=== PATIENT | female | born 1965 | race Caucasian/White ===

== ENCOUNTER → 2016-09-20 | Outpatient (REF) | payer OTHER | LOC: M SFHCLERA 17:14 | PROVIDERS: ATTEND Physician Assistant Medical | DX: N30.00 Acute cystitis without hematuria (principal) ==

== ENCOUNTER → 2018-01-15 | Outpatient (CLI) | payer OTHER | LOC: M WHC 13:06 | DX: Z12.31 Encounter for screening mammogram for malignant neoplasm of breast (principal); R10.2 Pelvic and perineal pain ==

== ENCOUNTER → 2018-05-26 | Outpatient (REF) | payer OTHER | LOC: M SFHCLERA 10:07 | PROVIDERS: ATTEND Physician Assistant | DX: J02.9 Acute pharyngitis, unspecified (principal) ==

== ENCOUNTER → 2019-02-13 | Outpatient (CLI) | payer OTHER ==
--- NOTE | 2019-02-13 09:15 | REPMRS ---
Patient History The patient states she had a clinical breast exam in 01/2019. Patient is postmenopausal. No known family history of cancer. Took hormonal contraceptives for 1 year. Taking estrogen for 1 year 5 months. Taking progesterone for 1 year 5 months. Taking unspecified hormones for 1 year 5 months. 3D TOMOSYNTHESIS WAS PERFORMED. The [facility] lifetime risk for breast cancer is 8.4%. Digital Woman Screen Mammo: February 13, 2019 - Exam #: [id number] Bilateral CC and MLO view(s) were taken. Technologist: Mary Fabian, Technologist Prior study comparison: January 15, 2018, bilateral digital woman screen mammo performed at [facility]. September 28, 2015, digital bilateral screening mammo, performed at [facility]. FINDINGS: The breast tissue is heterogeneously dense. This may lower the sensitivity of mammography. There has been no change in the appearance of the mammogram from the prior studies. There is a moderate amount of residual fibroglandular tissue which is fairly symmetric. There is no interval development of dominant mass, areas of architectural distortion, or clustered microcalcification typical of malignancy. Assessment: BI-RADS/ACR category 1 mammogram. Negative Mammogram. Recommendation Routine screening mammogram in 1 year (for women over age 40). This mammogram was interpreted with the aid of an FDA-approved computer-aided dectection system. Electronically Signed By: Hans Irby MD 02/13/19 0915
== END ==
LOC: M WHC 06:29
PROVIDERS: ATTEND Nurse Practitioner Women's Health
DX: Z12.31 Encounter for screening mammogram for malignant neoplasm of breast (principal)

== ENCOUNTER → 2019-04-17 | Outpatient (CLI) | payer OTHER ==
--- NOTE | 2019-04-17 18:15 | REP ---
Two-view chest: 04/17/2019. Indication: Dyspnea. Cough. Comparison: None. Findings: The lungs are clear. There is no pleural effusion or pneumothorax. The cardiomediastinal silhouette is unremarkable. Impression: No acute cardiopulmonary process. Electronically Signed by Julián Sanchez DO 04/17/2019 06:07 P
== END ==
LOC: M LRY 17:40
PROVIDERS: ATTEND Physician Assistant
DX: R05 Cough (principal)

== ENCOUNTER → 2021-03-11 | Outpatient (CLI) | payer OTHER ==
--- NOTE | 2021-03-11 09:38 | REPMRS ---
Patient History The patient states she had a clinical breast exam in February 2021. Patient is postmenopausal. No known family history of cancer. Took hormonal contraceptives for 1 year. Took estrogen for 1 year 5 months. Took progesterone for 1 year 5 months. Took unspecified hormones for 1 year 5 months. Patient states no breast complaints today. Patient has signed MRS History Sheet. Digital Woman Screen Mammo: March 11, 2021 - Exam #: [id number] Bilateral CC and MLO view(s) were taken. Technologist: Sushila Steward, Technologist Prior study comparison: February 13, 2019, bilateral digital woman screen mammo performed at [facility]. January 15, 2018, bilateral digital woman screen mammo performed at [facility]. September 28, 2015, digital bilateral screening mammo, performed at [facility]. FINDINGS: The breast tissue is heterogeneously dense. This may lower the sensitivity of mammography. The Volpara volumetric breast density category is: C. There is a moderate amount of heterogeneously dense fibroglandular tissue which is fairly symmetric. There is no interval development of dominant mass, architectural distortion, or grouped microcalcification typical of malignancy. There has been no change in the appearance of the mammogram from the prior studies. 3-D tomosynthesis shows no additional findings. Assessment: BI-RADS/ACR category 1 mammogram. Negative Mammogram. Recommendation Routine screening mammogram of both breasts in 1 year (for women over age 40). This patient's [facility] Lifetime Breast Cancer RIsk is estimated at 8.0 %. This mammogram was interpreted with the aid of an FDA-approved computer-aided dectection system. Electronically Signed By: Benjamin Desai MD 03/11/21 0937
--- NOTE | 2021-03-11 09:43 | DEXAMM ---
INDICATION: [facility] SCREEN FOR OSTEOPOROSIS. COMPARISON: None. TECHNIQUE: Bone density was measured using dual-energy x-ray absorptionmetry (DEXA). FINDINGS: AP SPINE L1-L4 BMD 1.248 g/cm2 Young Adult T-Score 0.4 Age Matched Z-Score 1.3. LT FEMUR, TOTAL BMD 0.860 g/cm2 Young Adult T-Score -1.2 Age Matched Z-Score -0.5. LT NECK BMD 0.749 g/cm2 Young Adult T-Score -2.1 Age Matched Z-Score -1.0. RT FEMUR, TOTAL BMD 0.828 g/cm2 Young Adult T-Score -1.4 Age Matched Z-Score -0.8. RT NECK BMD 0.767 g/cm2 Young Adult T-Score -2.0 Age Matched Z-Score -0.9. IMPRESSION: There is normal bone density of the spine. There is low bone density of the left hip. There is low bone density of the right hip. FOLLOW-UP: Recommendation for the next bone density exam: 2 years. <Electronically signed by Benjamin Desai > 03/11/21 0974
== END ==
LOC: M WHC 08:38
PROVIDERS: ATTEND Advanced Practice Midwife
DX: Z12.31 Encounter for screening mammogram for malignant neoplasm of breast (principal); Z13.820 Encounter for screening for osteoporosis; Z78.0 Asymptomatic menopausal state; M85.851 Other specified disorders of bone density and structure, right thigh; M85.852 Other specified disorders of bone density and structure, left thigh

== ENCOUNTER 2021-06-03 12:00 | Emergency (ER) | payer OTHER ==
--- NOTE | 2021-06-03 12:42 | REP ---
INDICATION: CHEST PAIN COMPARISON: 04/17/2019 TECHNIQUE: Portable AP view of the chest FINDINGS: The mediastinum and cardiac silhouette are stable and within normal limits for portable technique. A very subtle area of opacity along the periphery of the right lower lung zone should be correlated with auscultation and physical examination. This may represent an early infiltrate. No effusion. No pneumothorax. Musculoskeletal structures are intact. IMPRESSION: Cannot exclude small area of acute infiltrate along the lateral right lower lung zone. <Electronically signed by Beni Austin > 06/03/21 [id number]
[2021-06-03] MEDS ORDERED: ASPI81CH33 PO (12:44)
[2021-06-03] MEDS ORDERED: LISI10TA22 (12:44)
[2021-06-03 12:52] LABS: BASO % 0.2 % (0.0-1.0); HEMATOCRIT 41.1 % (36.0-47.0); HEMOGLOBIN 14.4 g/dl (12.0-15.5); LYMPH # 0.6 10^3/uL (1.5-5.0); MEAN CORPUSCULAR VOLUME 88.4 fl (80.0-96.0); MONO # 0.2 10^3/uL (0.0-0.8); MONO % 5.1 % (2.0-8.0); NEUTROPHILS # 3.9 10^3/uL (1.5-8.5); NEUTROPHILS % 82.3 % (36.0-66.0); PLATELET COUNT, AUTOMATED 166 10^3/uL (150-450); RED BLOOD COUNT 4.65 10^6/uL (4.00-5.40); WHITE BLOOD COUNT 4.7 10^3/uL (4.0-10.0)
[2021-06-03 13:20] LABS: CK-MB VALUE MASS < 1.0 NG/ML (<3.6); CPK CREATINE PHOSPHOKINASE 48 U/L (26-192); MB/CK RELATIVE INDEX 2.08 (< OR =4)
[2021-06-03 13:27] LABS: ALBUMIN 3.6 GM/DL (3.2-5.2); ALT/SGPT 29 U/L (12-78); BILIRUBIN,DIRECT 0.1 MG/DL (0.0-0.2); BILIRUBIN,TOTAL 0.4 MG/DL (0.2-1.0); BLOOD UREA NITROGEN 8 MG/DL (7-18); CALCIUM LEVEL 8.5 MG/DL (8.5-10.1); CARBON DIOXIDE LEVEL 25 MEQ/L (21-32); CHLORIDE LEVEL 102 MEQ/L (98-107); CREATININE FOR GFR 0.74 MG/DL (0.55-1.30); GLOMERULAR FILTRATION RATE > 60.0 (>51); GLUCOSE, FASTING 104 MG/DL (70-100); LIPASE 211 U/L (73-393); NT-PRO BNP 80 PG/ML (<125); POTASSIUM SERUM 3.5 MEQ/L (3.5-5.1); SODIUM LEVEL 137 MEQ/L (136-145); THYROID STIMULATING HORMONE 0.649 uIU/ML (0.358-3.740)
[2021-06-03] MEDS ORDERED: ISOVUE-370 76% 100ML VIAL As Ordered ONE (14:21)
--- NOTE | 2021-06-03 15:36 | REP ---
INDICATION: sob r/o PE COMPARISON: None. TECHNIQUE: Axial contrast enhanced images from the thoracic inlet to the upper abdomen using pulmonary embolus technique with multiplanar re-formations. 75 ml Isovue 370 intravenous contrast material administered without complication. This CT examination was performed using the following dose reduction techniques: Automated exposure control, adjustment of mA and/or kv according to the patient's size, and use of iterative reconstruction technique. FINDINGS: Satisfactory enhancement of the pulmonary vasculature is achieved and no filling defects are identified to suggest pulmonary embolus. Further evaluation of the mediastinum demonstrates normal thoracic aorta, heart and pericardium. Moderate areas of acute airspace disease involving the right lower lobe and lateral right middle lobe. No effusion. No pneumothorax. Left hemithorax is clear. No significant adenopathy. Tracheobronchial tree is patent. Musculoskeletal structures are intact. Limited upper abdomen demonstrates normal bilateral adrenal glands. IMPRESSION: No evidence for pulmonary embolus. Acute right lower lobe and right middle lobe airspace disease. Findings concerning for COVID-19 pulmonary disease and correlation is required. Differential diagnosis would include early multifocal pneumonia. <Electronically signed by Beni Austin > 06/03/21 3039
[2021-06-03 15:41] LABS: CK-MB VALUE MASS < 1.0 NG/ML (<3.6); CPK CREATINE PHOSPHOKINASE 45 U/L (26-192); MB/CK RELATIVE INDEX 2.22 (< OR =4)
[2021-06-03 16:15] VITALS: BP 151/80
--- NOTE | 2021-06-04 07:48 | ECGEPIP ---
[facility] - ED Test Date: 2021-06-03 Pat Name: PATRICK SHELTON Department: Room: - Gender: Female C Developer: KATYA : 1965 Requested By: Sruthi Wolfe Order Number: [id number] Reading MD: Sruthi Wolfe Measurements Intervals [place] Rate: 92 P: 65 [place]: 134 QRS: 36 QRSD: 78 T: 56 QT: 380 QTc: 469 Interpretive Statements Normal sinus rhythm Nonspecific ST and T wave abnormality Prolonged QT No prior Electronically Signed on 06-04-2021 7:48:19 EST by Sruthi Wolfe
== END 2021-06-03 17:30 | disposition home or self-care (01) ==
LOC: EDBD 12:00 → M ED 12:00
DX: R07.9 Chest pain, unspecified (principal); R06.02 Shortness of breath; U07.1 COVID-19; I10 Essential (primary) hypertension; I25.2 Old myocardial infarction; I48.92 Unspecified atrial flutter; Z95.5 Presence of coronary angioplasty implant and graft; Z79.899 Other long term (current) drug therapy; Z79.82 Long term (current) use of aspirin; Z87.891 Personal history of nicotine dependence
CPT/HCPCS: 36415; 71045; 71275; 80048; 80076; 82550; 82553; 83690; 83880; 84443; 84484; 85025; 93005; 93041; 94760; 99285; Q9967

== ENCOUNTER 2021-06-11 11:26 | Emergency (ER) | payer OTHER ==
[~2021-06-11] VITALS: Ht 162.6 cm; Wt 58.5 kg
[~2021-06-11 11:26] MED LIST: ASPI81CH33 PO; LISI10TA22
[2021-06-11] MEDS ORDERED: NITR0.4S14 SL (11:33)
[2021-06-11] MEDS ORDERED: FLECAINIDE 50MG TABLET PO ONE ×2 (12:10→12:20)
[2021-06-11 12:16] LABS: HEMATOCRIT 39.8 % (36.0-47.0); HEMOGLOBIN 13.9 g/dl (12.0-15.5); MEAN CORPUSCULAR HEMOGLOBIN 30.6 pg (27.0-33.0); MEAN CORPUSCULAR HGB CONC 34.9 g/dl (32.0-36.5); MEAN CORPUSCULAR VOLUME 87.7 fl (80.0-96.0); PLATELET COUNT, AUTOMATED 446 10^3/uL (150-450); RED BLOOD COUNT 4.54 10^6/uL (4.00-5.40); WHITE BLOOD COUNT 7.3 10^3/uL (4.0-10.0)
[2021-06-11 12:51] LABS: BLOOD UREA NITROGEN 15 MG/DL (7-18); CALCIUM LEVEL 8.8 MG/DL (8.5-10.1); CARBON DIOXIDE LEVEL 28 MEQ/L (21-32); CHLORIDE LEVEL 110 MEQ/L (98-107); GLOMERULAR FILTRATION RATE > 60.0 (>51); GLUCOSE, FASTING 102 MG/DL (70-100); MAGNESIUM LEVEL 2.4 MG/DL (1.8-2.4); SODIUM LEVEL 144 MEQ/L (136-145)
[2021-06-11 15:45] VITALS: BP 119/69
== END 2021-06-11 16:08 | disposition home or self-care (01) ==
LOC: M ED 11:26 → EDBD 11:26 → M ED 16:08
DX: I48.0 Paroxysmal atrial fibrillation (principal); I10 Essential (primary) hypertension; I25.10 Atherosclerotic heart disease of native coronary artery without angina pectoris; Z95.5 Presence of coronary angioplasty implant and graft; Z79.899 Other long term (current) drug therapy; Z79.82 Long term (current) use of aspirin

== ENCOUNTER → 2022-04-11 | Outpatient (CLI) | payer OTHER ==
[~2022-04-11] MED LIST changes: +NITR0.4S14 SL
== END ==
LOC: M WHC 10:23
PROVIDERS: ATTEND Obstetrics & Gynecology
DX: Z12.31 Encounter for screening mammogram for malignant neoplasm of breast (principal)

== ENCOUNTER → 2023-02-13 | Outpatient (REF) | payer OTHER | LOC: M LAB REF 16:31 | PROVIDERS: ATTEND Obstetrics & Gynecology | DX: R30.0 Dysuria (principal) ==

== ENCOUNTER → 2023-04-12 | Outpatient (CLI) | payer OTHER | LOC: M WHC 11:01 | PROVIDERS: ATTEND Obstetrics & Gynecology | DX: Z12.31 Encounter for screening mammogram for malignant neoplasm of breast (principal); Z13.820 Encounter for screening for osteoporosis ==

== ENCOUNTER → 2024-04-14 | Outpatient (CLI) | payer OTHER | LOC: M WHC 11:31 | PROVIDERS: ATTEND Obstetrics & Gynecology | DX: Z12.31 Encounter for screening mammogram for malignant neoplasm of breast (principal) ==

== ENCOUNTER → 2025-01-01 | Outpatient (REF) | payer OTHER ==
[2025-01-01 17:53] LABS: LDH LACTATE DEHYDROGENASE 246 U/L (120-246)
[2025-01-01 18:21] LABS: CA19-9 TUMOR MARKER,CARBOHYDRA 551.0 U/ML (<35.0)
== END ==
LOC: M LAB REF 16:59
PROVIDERS: ATTEND Obstetrics & Gynecology
DX: R19.09 Other intra-abdominal and pelvic swelling, mass and lump (principal); R97.1 Elevated cancer antigen 125 [CA 125]

== ENCOUNTER → 2025-01-20 | Outpatient (CLI) | payer OTHER ==
[~2025-01-20] MED LIST changes: +ISOVUE-370 76% 100 ML VIAL As Ordered ONE
== END ==
LOC: M RAD 09:13
PROVIDERS: ATTEND Obstetrics & Gynecology
DX: R19.09 Other intra-abdominal and pelvic swelling, mass and lump (principal); K42.9 Umbilical hernia without obstruction or gangrene
CPT/HCPCS: 74177; Q9967

== ENCOUNTER → 2025-04-11 | Outpatient (CLI) | payer OTHER ==
[~2025-04-11] VITALS: Ht 162.6 cm; Wt 60.0 kg
[~2025-04-11] MED LIST changes: +BACI1TAB20 PO; +FLEC50HA PO; -ISOVUE-370 76% 100 ML VIAL As Ordered ONE; +LIDO30CR18 TOP; +LOSA25TA13 PO; +ONDA-84 PO; +PROC10TA5 PO
[2025-04-11 10:40] VITALS: TEMP 97.7
[2025-04-11] MEDS: NS (Normal Saline) 0.9% 1,000 ML IV SCH (11:29)
[2025-04-11] MEDS: ceFAZolin SODIUM 2 GM in DEXTROSE 5% (D5W) ADV/MINI-BAG 50 ML IV ONE (11:30)
[2025-04-11] MEDS: MIDAZOLAM INJ 2 MG/2 ML VIAL IV PRN (12:05)
[2025-04-11] MEDS: ONDANSETRON 4MG/2ML VIAL IV STA (12:06)
[2025-04-11] MEDS: LIDOCAINE 1% MDV 20 ML VIAL SC SCH (12:13)
[2025-04-11 12:45] VITALS: BP 156/76; O2SAT 98
== END ==
LOC: M IRPRO 09:46
PROVIDERS: ATTEND Specialist
DX: C56.9 Malignant neoplasm of unspecified ovary (principal)
CPT/HCPCS: 36561; 76937; 99152; J0688; J1642; J2250; J2405; J3010

== ENCOUNTER → 2025-04-27 | Outpatient (POV) | payer OTHER ==
[~2025-04-27] MED LIST changes: +magnesium PO
== END ==
LOC: M IRPOV 09:30
PROVIDERS: ATTEND Registered Nurse School
DX: Z45.2 Encounter for adjustment and management of vascular access device (principal); C56.1 Malignant neoplasm of right ovary; Z79.899 Other long term (current) drug therapy; Z87.891 Personal history of nicotine dependence